=== PATIENT | female | born 1955 | race Two or more races ===

== ENCOUNTER 2025-08-04 15:29 | Outpatient (AMB) | payer OTHER, SELFPAY ==
--- NOTE | 2025-08-04 15:30 | A.OFFPC_ITS ---
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 Research Specialist Required: No Research Specialist Name: Doctor speaks afghan Accompanied by: Son Allergies No Known Allergies Allergy (Verified 08/04/25 15:39) Medication List - Last Reconciled 08/04/25 by Bereket Dent MD acetaminophen ER 650 mg PO Q12H PRN albuterol sulfate 90 mcg/actuation 2 puffs inhalation Q4H PRN budesonide-formoterol 80-4.5 mcg/actuation 2 puffs inhalation BID oxwtrfqnku-zsiilpchsnhqx-nhze 50-325-40 mg 1 tab PO DAILY PRN hydroxychloroquine 200 mg PO DAILY losartan 25 mg PO DAILY pantoprazole 40 mg PO QAM prednisone 2.5 mg PO BID theophylline ER 300 mg PO QAM Tobacco use date assessed: 08/04/25 Fall risk assessment: No Falls in past year Last assessed Fall Risk: 08/04/25 Dental Screening Dental Screen Date: 08/04/25 Did you have a dental visit in the last 12 months?: No Did you have a dental problem in the last 6 months where you did not have access to dental care?: No Was dental information given to patient?: No HPI HPI Comments History of Present Illness Details History of Present Illness The patient is a 69 year old female presenting to establish care and manage medications. Asthma: The patient reports a history of asthma, for which she frequently uses an albuterol rescue inhaler due to shortness of breath. She has a budesonide/formoterol maintenance inhaler at home but does not use it, stating she is more accustomed to the rescue inhaler. Her triggers include smoke, cold, pets, carpet, and anxiety. She has previously been prescribed Singulair (montelukast) in [place]. She also reports a history of allergies that can trigger her asthma. Arthritis: The patient has a history of arthritis, affecting her knees, spine, and fingers. She was diagnosed with rheumatoid arthritis by a doctor in [place] and was prescribed Plaquenil (hydroxychloroquine) 200 mg, prednisone 2.5 mg, and Tylenol. She also has a history of osteoarthritis, with disc problems and bone spurs in her spine. Osteopenia: The patient reports a diagnosis of osteopenia, weak bones in the hip, which was identified via a bone scan done in [place]. She cannot recall when the last scan was performed but states it was a long time ago. Migraine: The patient reports suffering from migraines, for which she takes a combination medication of butalbital, acetaminophen, and caffeine, which she reports is effective. Gastroesophageal Reflux Disease (GERD): The patient has a history of acid reflux, for which she takes pantoprazole (Protonix) 40 mg. Chronic Insomnia: She reports chronic insomnia for over 25 years. She states she barely sleeps, sometimes going four or five days with only 1.5 to 2 hours of sleep per day and refuses to take sleeping medication. Abdominal Hernia: The patient reports having three abdominal hernias. Surgical History: - Intestinal surgery - Hip surgery - Eye surgery for strabismus at age 22 - Cataract surgery Medications: - Albuterol inhaler, as needed for short ness of breath - Budesonide/formoterol inhaler (unused) - Butalbital/acetaminophen/caffeine for migraines - Hydroxychloroquine (Plaquenil) 200 mg for arthritis - Prednisone 2.5 mg for arthritis - Tylenol for arthritis pain - Losartan 25 mg - Pantoprazole (Protonix) 40 mg for refl ux - Prednisone 10 mg, as needed at home (d iscontinued during visit) - Theophylline, as needed Social History: - Medical History: The patient has not s een a doctor in one year. - Functional Status: The patient uses a 4-point cane for ambulation. - Activity Level: The patient reports ge tting tired easily, experiencing shortness of breath just walking from her bedroom to the kitchen. Diagnostic Results: - Mammogram: Normal, performed one month ago. - Pap smear: Last performed at age 66, r esults were normal. - Bone scan: History of a bone scan in [facility] which showed osteopenia, date of scan is unknown but was a long time ago. - Colonoscopy: History of a prior colono scopy, but details regarding findings and recommended follow-up interval are unknown. Past Medical History - Asthma - Rheumatoid arthritis - Osteoarthritis of the knees and spine, with disc problems and bone spurs - Osteopenia - Migraines - Gastroesophageal reflux disease - Chronic insomnia for over 25 years - Three abdominal hernias - History of strabismus - History of cataracts - Hospitalization for an asthma attack - Last menstrual period at age 51 Health Maintenance - Order a Cologuard test for colon cance r screening. - Order labs including a complete blood count and metabolic panel to check kidney and liver function. - Order an EKG to be performed in the of fice. - Plan to order a DEXA scan to re-evalua te for osteopenia. - Will refer to a environmental sampler for foot ca re. 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 [facility] Medical History (Updated 08/07/25 @ 22:38 by Bereket Dent MD) GERD (gastroesophageal reflux disease) Osteoarthritis Osteopenia Sleep disturbance Insomnia Moderate persistent asthma Overlapping toe Bunion Hernia Migraine Rheumatoid arthritis Arthritis Asthma Surgical History (Updated 08/04/25 @ 15:52 by Cheng Hamm CMA) H/O eye surgery History of cholecystectomy History of intestinal surgery History of hip surgery Family History (Updated 08/04/25 @ 15:53 by Cheng Hamm CMA) Sister Substance use disorder Brother Substance use disorder Mother Substance use disorder Social History (Updated 08/04/25 @ 15:54 by Cheng Hamm CMA) Housing: Apartment Alcohol intake: never Patient Tobacco Use Status: Never used Tobacco e-Cigarette/Vaping Use: Never Used Cognitive needs: No Hearing needs: No Vision needs: Yes Questionnaire PHQ-9 Over the last 2 weeks, how often have you been bothered by any of the following problems? 1. Little interest or pleasure in doing things: not at all 2. Feeling down, depressed, or hopeless: not at all 3. Trouble falling or staying asleep, or sleeping too much: nearly every day 4. Feeling tired or having little energy: nearly every day 5. Poor appetite or overeating: nearly every day 6. Feeling bad about yourself - or that you are a failure or have let yourself or your family down: not at all 7. Trouble concentrating on things, such as reading the newspaper or watching television: not at all [id number] - PHQ-9 Billing: Yes Source: Developed by Drs. Tae Odell, Fito Zambrano and colleagues, with an educational elian from [employer]. Thrive Questionnaire Date Thrive assessed: 08/04/25 I am a: Patient What is your living situation today?: I have a place to live, but I am worried about losing it in the future Within the past 12 months, did the food you bought not last and you didn't have the money to get more?: Never true Within the past 12 months, did you worry whether your food would run out before you got money to buy more?: Sometimes True Do you have trouble paying for medicines?: No Do you have trouble getting transportation to medical appointments?: No Do you have trouble paying your heating and electricity bill?: No Do you have trouble taking care of your child, family member or friend?: I choose not to answer this question Do you have trouble with day-to-day activities such as bathing, preparing meals, shopping, managing finances, etc.?: Yes Are you currently unemployed and looking for a job?: No Are you interested in more education?: No Please select the resources that you would like help with: Housing/Residential Currently or been in a relationship where the following occur: No concerns reported THRIVE Score: 2 AUDIT C Alcohol Use Questionnaire (AUDIT-C) 1. How often do you have a drink containing alcohol?: Never Total Score: 0 PATY-7 AMB Questionnaire PATY-7 Date PATY - 7 assessed: 08/04/25 Feeling nervous, anxious, or on edge: 1 = Several days Not being able to stop or control worryin = Several days Worrying too much about different things: 1 = Several days Trouble relaxin = Nearly every day Being so restless that it is hard to sit still: 0 = Not at all Becoming easily annoyed or irritable: 0 = Not at all Feeling afraid as if something awful might happen: 1 = Several days Total PATY-7 score (0-4 normal; 5-9 mild; 10-14 moderate; 15-21 severe): 7 Source: Developed by Drs. Tae Odell, Fito Zambrano and colleagues, with an educational elian from [employer]. PATY-7 Assessment Billing PATY-7 Assessment Tool: PATY-7 Assessment 74479 Review of Systems Narrative Review of Systems - Respiratory: Reports dyspnea and feeling of phlegm in the throat. Denies other respiratory symptoms. - Musculoskeletal: Reports arthritis pain and pain in her fingers. - Neurological: Reports migraines. Denies other neurological symptoms. - Gastrointestinal: Reports acid reflux and three abdominal hernias. Denies other GI symptoms. - HEENT: Reports she cannot see out of her right eye and has failing vision in the left eye. Denies other HEENT symptoms. - Constitutional: Reports fatigue. Denies fever or chills. - Sleep: Reports chronic insomnia for over 25 years, sleeping only 1.5-2 hours on some days. - Allergic/Immunologic: Reports a history of allergies. - Genitourinary: Reports last menstrual period at age 51. 10-point ROS reviewed and negative except as noted in HPI Physical exam (Primary Care) Vital Signs: Last Vital Signs Temp 97.5 F 08/04/25 15:54 Pulse 94 08/04/25 15:54 Resp 16 08/04/25 15:54 BP 145/73 H 08/04/25 15:54 Pulse Ox 98 08/04/25 15:54 Oxygen Delivery Method Room Air 08/04/25 15:54 BMI result Body Mass Index 30.7 Tobacco/Smoking Status: Tobacco use Status Tobacco use date assessed 08/04/25 08/04/25 15:57 Patient Tobacco Use Status Never used Tobacco 08/04/25 15:57 e-Cigarette/Vaping Use Never Used 08/04/25 15:57 Thrive Assessment: Date of Thrive Assessment Date Thrive assessed 08/04/25 08/04/25 15:33 Currently or been in a relationship where the following occur: No concerns reported Narrative Physical Exam General: Well-appearing, in no acute distress. Vital signs: Within normal limits. HEENT: Normocephalic, atraumatic. PERRLA, EOMI. Conjunctiva clear, sclera anicteric. Oropharynx clear, mucous membranes moist. TMs intact bilaterally. Neck: Supple, no lymphadenopathy, no thyromegaly, no JVD or carotid bruits. Cardiovascular: RRR, normal S1/S2, no murmurs, rubs, or gallops. Peripheral pulses 2+ and symmetric. No edema. Respiratory: Lungs clear to auscultation bilaterally, no wheezes, rales, or rhonchi. Normal effort. Abdomen: Soft, non-tender, non-distended. Normoactive bowel sounds. No hepatosplenomegaly, no masses. History of three abdominal hernias. MSK: Full range of motion, no joint swelling or deformity. Normal gait with use of cane Skin: Warm, dry, intact. No rashes, lesions, or pallor. Neuro: Alert and oriented x3. Cranial nerves II-XII intact. Strength 5/5 throughout. Sensation intact. Reflexes 2+ symmetric. Normal coordination and gait. Psych: Appropriate mood and affect. Normal judgment and insight. Reports chronic insomnia for over 25 years. Coding Level of Care Code New Pt Level 4 (69723) Add On Problem Visit Only Diagnoses Moderate persistent asthma J45.40 Overlapping toe M20.5X9 Bunion M21.619 Rheumatoid arthritis M06.9 Insomnia G47.00 Sleep disturbance G47.9 Osteopenia M85.80 Osteoarthritis M19.90 GERD (gastroesophageal reflux disease) K21.9 Hypertension I10 Additional Codes PATY-7 Assessment Billing - PATY-7 Assessment Tool: PATY-7 Assessment 91573 ([id number]) PHQ-9 - 86414 - PHQ-9 Billing: Yes ([id number]) Assessment & Plan Assessment & Plan (1) Moderate persistent asthma: Code(s): J45.40 - Moderate persistent asthma, uncomplicated Category: Medical (2) Overlapping toe: Code(s): M20.5X9 - Other deformities of toe(s) (acquired), unspecified foot Category: Medical (3) Bunion: Code(s): M21.619 - Bunion of unspecified foot Category: Medical (4) Rheumatoid arthritis: Code(s): M06.9 - Rheumatoid arthritis, unspecified Category: Medical (5) Insomnia: Code(s): G47.00 - Insomnia, unspecified Category: Medical (6) Sleep disturbance: Code(s): G47.9 - Sleep disorder, unspecified Category: Medical (7) Osteopenia: Code(s): M85.80 - Other specified disorders of bone density and structure, unspecified site Category: Medical (8) Osteoarthritis: Code(s): M19.90 - Unspecified osteoarthritis, unspecified site Category: Medical (9) GERD (gastroesophageal reflux disease): Code(s): K21.9 - Gastro-esophageal reflux disease without esophagitis Category: Medical (10) Hypertension: Code(s): I10 - Essential (primary) hypertension Plan Consent Patient was informed and verbally consented to the use of an ambient scribe for clinic note documentation during this visit. Plan 1. Asthma - The patient's frequent use of her albuterol rescue inhaler indicates poor asthma control. - Will instruct the patient to start using her maintenance inhaler, budesonide/formoterol, two puffs in the morning and two puffs at night, regardless of symptoms. - Will prescribe montelukast (Singulair) to be taken at night for asthma and allergy control. - Will continue the prescription for a rescue albuterol inhaler for emergency use only. - Will prescribe a nebulizer machine with albuterol and ipratropium for home therapy. - continue theophylline. - Follow-up in two weeks to assess control. 2. Allergic Rhinitis - Allergies are a likely trigger for her asthma. - Will prescribe cetirizine for allergies, to be taken as needed. - Flonase was also discussed as a potential treatment. 3. Arthritis - Continue current regimen of hydroxychloroquine (Plaquenil) and prednisone 2.5 mg for arthritis. - Discontinue the as-needed 10 mg prednisone kept at home due to potential side effects. - Will obtain records from her previous providers, including the [employer] passenger car who prescribed Plaquenil. 4. Chronic Insomnia - Patient has a long-standing history of chronic insomnia and refuses sleep medication. - Will order a home sleep study to evaluate her sleep. Discussion Notes I had a detailed discussion with the patient and her caregiver about her multiple chronic conditions, primarily focusing on her poorly controlled asthma. I explained that her asthma is a chronic inflammatory condition and that over- reliance on a rescue inhaler like albuterol is not an effective long-term strategy and can lead to tachyphylaxis. I emphasized the importance of using a daily maintenance inhaler (budesonide/formoterol) to control the underlying inflammation, instructing her to use it twice daily regardless of how she feels. I also introduced montelukast as an additional medication to help with both asthma and allergies. I clarified that the albuterol inhaler should be reserved for acute shortness of breath emergencies. A home nebulizer was also prescribed for more severe exacerbations. We discussed discontinuing her PRN 10 mg prednisone due to the high risk of side effects and advised her to seek immediate care if she feels unwell instead of self-medicating. We will continue her low-dose (2.5 mg) prednisone for arthritis. Regarding health maintenance, I explained the [employer] test for colon cancer screening, detailing the sample collection process. I also ordered bloodwork, an EKG, and a home sleep study to investigate her chronic insomnia. Referral will be made to podiatry. I requested that the patient provide information for her previous doctors so we can obtain medical records. I have scheduled a follow-up in two weeks to assess her asthma control. Patient Instructions - Take your new maintenance asthma inhaler (budesonide/formoterol) every day. Use two puffs in the morning and two puffs at night, even if you are feeling well. - Only use your albuterol (rescue) inhaler if you are having an emergency and feel short of breath. - You will be receiving a nebulizer machine to use at home for breathing treatments when needed. - Start taking one tablet of Montelukast (Singulair) every night for your asthma and allergies. - You can take cetirizine for allergies as needed. - Continue taking your hydroxychloroquine, losartan, pantoprazole, and the low- dose prednisone (2.5 mg) as you have been. - Do not take the 10 mg prednisone you have at home. If you feel very sick, you need to come to the clinic or go to the emergency room. - Please go for blood tests and an EKG (heart tracing) as ordered. - You will receive a kit in the mail called Eve. Follow the instructions to collect a stool sample and mail it back to the lab. - We will set up a home sleep study to understand why you have trouble sleeping. The company will call you to arrange it. - We will be referring you to a foot doctor (environmental sampler). - Please provide my chief information security officer with the contact information for all your previous doctors. - Return to the clinic in two weeks for a follow-up visit. Medical Decision Making The patient is a 69-year-old female with multiple complex chronic medical issues who presents to [facility] care after a year without medical oversight. The most pressing issue is her poorly controlled asthma, evidenced by her frequent use of an albuterol rescue inhaler and significant dyspnea on minimal exertion. My primary goal is to stabilize her respiratory status by transitioning her from a rescue-dominant approach to appropriate maintenance therapy. The decision to prescribe a budesonide/formoterol maintenance inhaler is based on standard asthma guidelines to control underlying airway inflammation, which is not addressed by albuterol alone. Adding montelukast and an as-needed antihistamine (cetirizine) targets the allergic component that likely contr ibutes to her asthma exacerbations. Prescribing a home nebulizer provides a higher level of care for acute episodes, reducing the risk of emergency department visits. I discontinued the as-needed 10 mg prednisone to mitigate the significant risks of long-term steroid use, emphasizing that acute exacerbations require direct clinical evaluation. Her rheumatological care is being continued with hydroxychloroquine and low-dose prednisone, but obtaining records is critical to confirm the diagnosis and management plan. The patient's severe, long-standing insomnia warrants a sleep study to rule out an underlying sleep disorder like sleep apnea, especially given her respiratory comorbidities. Diagnostic workup with an EKG and comprehensive labs will establish a baseline and screen for any end-organ damage from her chronic conditions. A Cologuard test is a practical approach for colon cancer screening given the unclear history of her prior colonoscopy. Referral to podiatry provided. A close follow-up in two weeks is essential to assess her response to the new asthma regimen. Total Time Statement 30 min Total time spent caring for the patient today includes pre-visit chart review, documentation, review of laboratory and diagnostic imaging results, medication reconciliation, medically necessary evaluation, counseling on diagnoses, care coordination, ordering appropriate tests and medications, review of tests performed by other providers, reporting test results to the patient, and communication with other healthcare providers. Orders: Orders Vitamin D 25-OH (D2 and D3) 08/04/25 Z13.9 - Encounter for screening, unspecified Complete Blood Count Auto Diff 08/04/25 Z13. - Encounter for screening, unspecified Hepatitis B Surface Antigen 08/04/25 Z13. - Encounter for screening, unspecified Comprehensive Met. Panel 08/04/25 Z13.9 - Encounter for screening, unspecified TSH reflex Free T4 08/04/25 Z13.9 - Encounter for screening, unspecified UA CC w/rflx Micro + Cult 08/04/25 Z13.9 - Encounter for screening, unspecified Lipid Panel 08/04/25 Z13.9 - Encounter for screening, unspecified RT home sleep study Today G47.00 - Insomnia, unspecified, G47.9 - Sleep disorder, unspecified Syphilis Screen 08/04/25 Z13.9 - Encounter for screening, unspecified Hepatitis C Antibody 08/04/25 Z13.9 - Encounter for screening, unspecified HIV Ab/Ag 08/04/25 Z13.9 - Encounter for screening, unspecified Vitamin B12 and Folate 08/04/25 Z13.9 - Encounter for screening, unspecified Hemoglobin A1c 08/04/25 Z13.9 - Encounter for screening, unspecified Magnesium 08/04/25 Z13.9 - Encounter for screening, unspecified Hepatitis B Surface Antibody 08/04/25 Z13.9 - Encounter for screening, unspecified ECG 12 lead EKG Today I10 - Essential (primary) hypertension Referrals Cologuard Test Z12.11 - Encounter for screening for malignant neoplasm of colon, Z12.12 - Encounter for screening for malignant neoplasm of rectum Podiatry Referral M20.5X9 - Other deformities of toe(s) (acquired), unspecified foot, M21.619 - Bunion of unspecified foot Medications: New budesonide-formoterol 80-4.5 mcg/actuation 2 puffs inhalation BID 10.2 grams 0RF albuterol sulfate 90 mcg/actuation 2 puffs inhalation Q4H PRN 8.5 grams 0RF wheezing/dyspnea theophylline ER 300 mg PO QAM 30 tabs 0RF montelukast 10 mg PO BEDTIME 90 tabs 0RF cetirizine (All Day Allergy (cetirizine)) 10 mg PO DAILY PRN 90 tabs 0RF allergy symptoms [nebulizer] As directed 1 ea 0RF J45.40 - Moderate persistent asthma, uncomplicated
[2025-08-04 15:54] VITALS: BP 145/73; PULSE 94; RESP 16; TEMP 36.4; O2SAT 98; BMI 30.7
--- OUTSIDE RECORDS SUMMARY | 2025-08-04 22:14 | XMS_ITS | Clinical Summary ---
Author Organization [facility] Address [address] [place] [address] Phone Care Team Providers Care Tier In Name Role Phone Unavailable Primary Care Provider Unavailabl e Allergies No known active allergies Medications albuterol HFA (Ventolin HFA) 90 mcg/actuation inhalerIndicati ons:Uncomplicat ed asthma, unspecified asthma severity, unspecified whether persistent Inhale 2 puffs by mouth every 6 (six) hours if needed for wheezing or shortness of breath. 8 g 5 5 Active ipratropium (ATROVENT) 0.02 % nebulizer solutionIndicat ions:Uncomplica anthony asthma, unspecified asthma severity, unspecified whether persistent Take 2.5 mL (0.5 mg total) by nebulization 4 (four) times a day if needed (asthma). 300 mL 5 5 10/28/19 26 Active acetaminophen (TYLENOL 8 HOUR) 650 mg 8 hr tabletIndicatio ns:Rheumatoid arthritis involving multiple sites, unspecified whether rheumatoid factor present ([facility] V24, [facility] V28) Take 1 tablet (650 mg total) by mouth 2 (two) times a day if needed for moderate pain. 56 tablet 2 5 Active predniSONE (DELTASONE) 10 mg tabletIndicatio ns:Rheumatoid arthritis involving multiple sites, unspecified whether rheumatoid factor present ([facility] V24, [facility] V28) Take 1 tablet (10 mg total) by mouth 1 (one) time each day for 7 days. 7 tablet 2 5 Active losartan (Cozaar) 25 mg tabletIndicatio ns:Type 2 diabetes mellitus with diabetic neuropathy, without long-term current use of insulin ([facility] V24, [facility] V28) Take 1 tablet (25 mg total) by mouth 1 (one) time each day. 30 each 5 10/31/19 26 Active theophylline (Simeon-24) 300 mg 24 hr capsuleIndicati ons:Uncomplicat ed asthma, unspecified asthma severity, unspecified whether persistent Take 1 capsule (300 mg total) by mouth 1 (one) time each day. Do not crush or chew. 30 each 5 10/31/19 26 Active pantoprazole (PROTONIX) 40 mg EC tabletIndicatio ns:gastroesopha geal reflux disease Take 1 tablet (40 mg total) by mouth 1 (one) time each day before breakfast. Do not crush, chew, or split. 28 each 5 11/14/19 26 Active predniSONE (DELTASONE) 2.5 mg tabletIndicatio ns:rheumatoid arthritis Take 1 tablet (2.5 mg total) by mouth 1 (one) time each day. 28 each 5 11/14/19 26 Active hydroxychloroqu ine (PlaqueniL) 200 mg tabletIndicatio ns:Rheumatoid arthritis involving multiple sites, unspecified whether rheumatoid factor present ([facility] V24, [facility] V28) Take 1 tablet (200 mg total) by mouth 1 (one) time each day. 28 tablet 5 5 Active Active Problems Problem Noted Date Diagnosed Date Polyneuropathy due to type 2 diabetes mellitus 0 11/04/2024 Assessment & Plan (11/04/2024 12:10 PM EDT): Late entry for DOS 10/30/24, chronic condition. Intermittent discomfort. Will refer to podiatry for diabetic shoes. Bilateral bunions 11/04/2024 Overview (11/04/2024): Chronic condition. Refer to podiatry for diabetic shoes. Assessment & Plan (11/04/2024 12:11 PM EDT): Late entry for DOS 10/30/24, Chronic condition. Refer to podiatry for diabetic shoes. Posterior vitreous detachment of both eyes 11/04 Assessment & Plan (11/04/2024 12:15 PM EDT): Late entry for date of service 11/13/2024. Chronic condition; reports recently having eye exam. Will need to obtain records. Regular astigmatism 11/04/2024 Assessment & Plan (11/04/2024 12:13 PM EDT): Chronic condition; had recent eye exam. Recommend yearly diabetic eye examination. Floaters 11/04/2024 Overview (11/04/2024): Late entry for DOS 10/30/24, Chronic condition; did not complain of lower extremity visit. Had a recent eye exam. Will need to obtain records. Ventral hernia Assessment & Plan (10/30/2024 4:34 PM EST): Chronic condition; stable. Reducible, non tender. Continue to monitor. Rheumatoid arthritis Assessment & Plan (10/30/2024 4:34 PM EST): Chronic condition; stable. Continue current medications. Refer to [facility] for co-management. Osteopenia Assessment & Plan (10/30/2024 4:31 PM EST): Chronic condition. Previously on vitamin D3 once a week. Will check Vitamin D level. Reports having DEXA scan in [place] < 1 year ago. Will attempt to obtain records. Osteoarthritis of multiple joints Assessment & Plan (10/30/2024 4:32 PM EST): Chronic condition; stable. Continue APAP as needed for pain. No major concerns as this time. Continue to monitor. Hypertension Assessment & Plan (10/30/2024 4:27 PM EST): Chronic condition; not well controlled. PAR has not been taking Losartan as prescribed. Reports taking medication only when she feels dizzy on average once to twice a week. Educated on the importance of taking medication daily. Risk of uncontrolled hypertension reviewed with PAR. Will have PAR return for a follow up. GERD (gastroesophageal reflux disease) Assessment & Plan (10/30/2024 4:28 PM EST): Chronic condition; has been taking PPI only as needed. Advised need to take medication daily. Will refill medication. Educated PAR on avoiding trigger foods. Diabetes mellitus Assessment & Plan (10/30/2024 4:33 PM EST): Chronic condition; reports no longer on medication. History of 3 months of using insulin. Will obtain Hgba1c. Asthma, not well controlled Assessment & Plan (10/30/2024 4:22 PM EST): Chronic condition. Will refill medications for PAR. Refer to pulmonology for a PFT treatment co-management. PAR on Theophyline for years; would most likely benefit from discontinuation of medication. Allergic rhinitis due to allergen Assessment & Plan (10/30/2024 4:24 PM EST): Chronic condition; stable. PAR uses zyrtec as needed. Continue to monitor. Migraine headache Assessment & Plan (10/30/2024 4:15 PM EST): Chronic condition. Experiences headaches 1-2 times per week. Currently controlled on Fioricet. Will plan to discuss other treatment options with PAR next visit. Surgical History Surgery Date Site/Laterality Comments SECTION, LOW TRANSVERSE COLON SURGERY GALLBLADDER TUBAL LIGATION CHOLECYSTECTOMY CATARACT EXTRACTION Left HIP FRACTURE SURGERY Left Medical History Medical History Date Comments Hypertension Diabetes mellitus ([facility] V24, [facility] V28) Asthma GERD (gastroesophageal reflux disease) Osteopenia Rheumatoid arthritis ([facility] V24, [facility] V28) Osteoarthritis of multiple joints Ventral hernia Allergic rhinitis due to allergen Migraine headache Family History Medical History Relation Name Comments No Known Problems Father Asthma Mother Colon cancer Sister 1 Uterine cancer Sister 2 Relation Name Status Comments Father Mother Sister 1 Alive Sister 2 Social History Tobacco Use Types Packs/Day Years Used Date Smoking Tobacco: Never Smokeless Tobacco: Never Tobacco Cessation:Counseling Given: Not Answered Alcohol Use Standard Drinks/Week Comments Never 0 (1 standard drink = 0.6 oz pur e alcohol) Comments Unknown Sex and Gender Information Value Date Recorded Sex Assigned at Female 10/28/2024 9:58 AM EST Legal Sex Female 4:46 PM EST Gender Identity Female 10/28/2024 9:58 AM EST Sexual Orientation Straight 10/28/2024 9: 58 AM EST Obstetrics History Para Term AB IAB SAB Ectopic Multiple Livin g Live Births 3 3 0 0 0 0 3 0 Date Outcome GA Total Labor Labor/2nd/3rd Weight Sex Type Anes PTL Roya A1 A5 Name Clin Para Para Para Last Filed Vital Signs Vital Sign Reading Time Taken Comments Blood Pressure 148/74 10/30/2024 10:54 AM EST Pulse 90 10/30/2024 10:54 AM EST Temperature 36.4 C (97.5 F) 10/30/2024 10:54 AM EST Respiratory Rate - - Oxygen Saturation 96% 10/30/2024 10:54 AM EST Inhaled Oxygen Concentration - - Weight 68.2 kg (150 lb 6.4 oz) 10/30/2024 10:54 AM EST Height 152.4 cm (5') 10/30/2024 10:54 AM EST Body Mass Index 29.37 10/30/2024 10:54 AM EST Plan of Treatment Health Maintenance Due Date Last Done Comments Breast Cancer Screening 1955 Colorectal Cancer Screening: Colonoscopy 1955 Diabetes: Annual Retina Eye Exam 1966 DTaP,Tdap,and Td Vaccines (1 - Tdap) 1975 Pneumococcal Vaccine: 50+ Ye ars (1 of 2 - PCV) 1975 RSV Immunization Adult Patie nts (1 - Risk 50-74 years 1-dose series) 2006 Zoster Vaccines (1 of 2) 2006 Depression Screening 08/27/2024 Falls Risk Assessment 10/24/2024 Hepatitis C Screening 10/24/2024 Medicare Annual Wellness Visit 10/24/2024 Osteoporosis Screening (Bone Density Screening) 10/24/2024 Social Influencers of Health Screening 10/24/2024 Diabetes: Annual Urine Albumin-Creatinine Ratio (uACR) 10/28/2024 COVID-19 Vaccine (1 - 2024-2 6 season) 2025 Influenza Vaccine (#1) 2025 Diabetes: Blood Sugar Contro l Test (HGBA1C) 05/02/2025 10/30/2024 Diabetes: Annual Foot Exam 10/30/2025 10/30/2024 Diabetes: Annual GFR (Glomer ular Filtration Rate) 10/30/2025 10/30/2024 Hypertension/CHF/CAD Annual BMP Blood Test 10/30/2025 10/30/2024 Cholesterol Screening (Lipid Panel) 10/30/2029 10/30/2024 HIB Vaccines Aged Out No longer eligi ble based on patient's age to complete this topic HPV Vaccines Aged Out No longer eligi ble based on patient's age to complete this topic Hepatitis A Vaccines Aged Out No long er eligible based on patient's age to complete this topic Hepatitis B Vaccines Aged Out No long er eligible based on patient's age to complete this topic IPV Vaccines Aged Out No longer eligi ble based on patient's age to complete this topic MMR Vaccines Aged Out No longer eligi ble based on patient's age to complete this topic Meningococcal ACWY Vaccine Aged Out N o longer eligible based on patient's age to complete this topic Meningococcal B Vaccine Aged Out No l onger eligible based on patient's age to complete this topic RSV Immunization Patients Un dionisio 20 months Aged Out No longer eligible b ased on patient's age to complete this topic Varicella Vaccines Aged Out No longer eligible based on patient's age to complete this topic Procedures Procedure Name Priority Date/Time Associated Diagnosis Comments COMPREHENSIVE METABOLIC PANEL Routine 10/30/2024 1:09 PM EST Examination HEMOGLOBIN A1C Routine 10/30/2024 1:09 PM EST Examination LIPID PANEL WITH REFLEX TO DIRECT LDL Routine 10/30/2024 1:09 PM EST Examination from Last 3 Months or Most Recently Relevant to Health Maintenance Results * Lipid panel with reflex to direct LDL (10/30/2024 1:09 PM EST) Cholesterol 179 0 - 200 mg/dL LAB CHEMISTRY METHOD 10/30/2024 7:34 PM EST [facility] Triglycerides 99 0 - 150 mg/dL LAB CHEMISTRY METHOD 10/30/2024 7:34 PM EST [facility] HDL 72 >=40 mg/dL LAB CHEMISTRY METHOD 10/30/2024 7:34 PM EST [facility] LDL Calculated 87 0 - 100 mg/dL LAB CHEMISTRY METHOD 10/30/2024 7:34 PM [facility] VLDL Cholesterol Dominic 19.8 mg/dL LAB CHEMISTRY METHOD 10/30/2024 7:34 PM [facility] Non HDL Chol. (LDL+VLDL) 107 <145 mg/dL LAB CHEMISTRY METHOD 10/30/2024 7:34 PM [facility] Chol/HDL Ratio 2.5 0.0 - 4.4 LAB CHEMISTRY METHOD 10/30/2024 7:34 PM [facility] Blood Venous blood specimen / Unknown Venipuncture / Unknown 10/30/2024 1:09 PM EST 10/30/2024 1:09 PM EST Jenny Hamm NP LAB BLOOD ORDERABLES Final Re sult Performing Organization Address City/[facility]/ZIP Co de Phone Number [facility] [address] [place] [address], [place] [phone] * Hemoglobin A1c (10/30/2024 1:09 PM EST) Hemoglobin A1C 5.2 <6.5 % LAB CHEMISTRY METHOD 10/31/2024 10:53 AM [facility] Mean Bld Glu Estim. 103 mg/dL LAB CHEMISTRY METHOD 10/31/2024 10:53 AM [facility] Blood Venous blood specimen / Unknown Venipuncture / Unknown 10/30/2024 1:09 PM EST 10/30/2024 1:09 PM EST Jenny Hamm NP LAB BLOOD ORDERABLES Final Re sult Performing Organization Address City/[facility]/ZIP Co de Phone Number [facility] [address] [place] [address], [place] [phone] * (ABNORMAL) Comprehensive metabolic panel (10/30/2024 1:09 PM EST) Sodium 132(L) 133 - 145 mmol/L LAB CHEMISTRY METHOD 10/30/2024 7:34 PM [facility] Potassium 3.8 3.5 - 5.5 mmol/L LAB CHEMISTRY METHOD 10/30/2024 7:34 PM [facility] Chloride 99 96 - 110 mmol/L LAB CHEMISTRY METHOD 10/30/2024 7:34 PM [facility] CO2 25 21 - 32 mmol/L LAB CHEMISTRY METHOD 10/30/2024 7:34 PM [facility] Anion Gap 8 3 - 11 LAB CHEMISTRY METHOD 10/30/2024 7:34 PM [facility] Glucose 86 70 - 100 mg/dL LAB CHEMISTRY METHOD 10/30/2024 7:34 PM [facility] BUN 11 5 - 25 mg/dL LAB CHEMISTRY METHOD 10/30/2024 7:34 PM [facility] Creatinine 0.80 0.50 - 1.10 mg/dL LAB CHEMISTRY METHOD 10/30/2024 7:34 PM [facility] eGFR 80 >=60 mL/min/1. 73m2 LAB CHEMISTRY METHOD 10/30/2024 7:34 PM [facility] Comment:Calculation based on the Chronic Kidney Disease Epidemiology Collaboration (CKD-EPI) equation refit without adjustment for race. BUN/Creatinine Ratio 13.8 LAB CHEMISTRY METHOD 10/30/2024 7:34 PM [facility] Calcium 9.6 8.5 - 10.5 mg/dL LAB CHEMISTRY METHOD 10/30/2024 7:34 PM [facility] AST (SGOT) 22 10 - 42 unit/L LAB CHEMISTRY METHOD 10/30/2024 7:34 PM [facility] ALT (SGPT) 23 10 - 60 unit/L LAB CHEMISTRY METHOD 10/30/2024 7:34 PM [facility] Alkaline Phosphatase 79 42 - 121 unit/L LAB CHEMISTRY METHOD 10/30/2024 7:34 PM EST [facility] Total Protein 7.5 6.0 - 8.0 g/dL LAB CHEMISTRY METHOD 10/30/2024 7:34 PM EST [facility] Albumin 3.9 3.2 - 5.0 g/dL LAB CHEMISTRY METHOD 10/30/2024 7:34 PM EST [facility] Total Bilirubin 0.3 0.0 - 1.4 mg/dL LAB CHEMISTRY METHOD 10/30/2024 7:34 PM EST [facility] Blood Venous blood specimen / Unknown Venipuncture / Unknown 10/30/2024 1:09 PM EST 10/30/2024 1:09 PM EST us Jenny Hamm NP LAB BLOOD ORDERABLES Final Re sult [facility] [address] [place] [address], from Last 3 Months or Most Recently Relevant to Health Maintenance Insurance [employer] * Guarantor: DILIP Account Type Relation to Patient Date of Phone Billing Address DILIP CHERRY [address] [place] [id number] [employer] Advance Directives Documents on File Type Date Recorded Patient Host/Hostess Head Expl anation Advance Directives and Living Will 12/18/2024 12:31 PM MOLST 10/20/2024
--- OUTSIDE RECORDS SUMMARY | 2025-08-04 22:14 | XMS_ITS | Encounter Summary ---
Author Organization [facility] Address [address] [place] [address] Encounters * CPT with Bossman Restrepo at [facility] on 2025-02-21 { reasonForRequest : Pt reporting severe headache>high blood pressure (168/100)\n\nAllergies to medication: None\nPMH: hypertension, asthma, arthritis , , patientReports : Weakness/tachycardia , denies :[ History of Heart Attack, in the setting of active chest pain , Active Chest pain, radiates to neck jaw and or arm , Diaphoretic/Sweating , Describes as crushing ,"Sudden onset of nausea/Vomiting and shortness of breath. , Shortness of Breath ,"Unable to speak in full sentences without distress , Palpitations, feeling dizzy", Chest pain, increased fatigue , CHF history, increased swelling and edema ],& quot;chiefComplaints : High Blood Pressure, Headache , pmh : Hypertension, Asthma, Osteoarthritis , allergies : No Known Drug Allergies , ot herAllergies : , painAssessment : , visitOutcome :&qu ot; , additionalComments : 69 y.o female complains of High Blood Pressure, Heada candido\nPatient is complaining of a headache that started this morning. She took her losartan this morning. She just checked her pressure prior to calling and it was 168/100 and states she feels tired. denies any lightheadedness, visual issues, denies any chest pain or pressure, nausea or vomiting. reviewed red flags. \n\nI provided information on the mobile health provider response time and advisedthe patient and/or caregiver to monitor reported signs and symptoms. I discussed the warning signs of when to seek emergency care. } [place] [facility] responds to the listed address for a 69yof w/ a c/c of high blood pressure and finnegan. Upon arrival on scene, pt's son, with whom she lives, opens the door to the small apartment. Pt is found seatedin a chair by the window in the living area of the apartment. She is resting her head in her hand and she lifts it and turns to make eye contact and smiles at [facility]. She is generally well-appearing. No facial droop or one-sided weakness are observed, no stridor or sonorous respirations are present and she is not bleeding anywhere. Pt is endorsing high bp readings all day today. She took her bp thismorning because she awoke w/ a bad finnegan and thought it may be from her bp. She saw the reading was higher than normal and began to take it several times throughout the day. She endorses 6 or more timesof taking her bp. She also took 650mg Tylenol x2 tablets this afternoon w/ no relief of her finnegan. Shehas a hx of migraines and normally has fiorocet, but she and her son just moved to the area from [place] a few months ago and have yet to be established w/ a PCP. They are on a waiting list. She also has asthma. She is denying cp, sob, n/v/d, fevers/chills, ams, confusion, difficulty speaking, or feeling like she can't move or have control of one-side of her body. She denies this finnegan being a migraine. Pt consents to evaluation and treatment today. [facility] obtains pt consent. Vital signs are gathered and pt is assessed. Physical exam is unremarkable and lung sounds are clear to auscultation bilaterally. [facility] contacts [facility] and discusses the above. Casks about pt's medical hx and prescriptions and wants to ensure she has enough of her medications to last until she does get in to see a PCP. She asks for a refill on her albuterol inhaler as well as her theophylline. She is currently under the care of a vendor quality supervisor for her RA. [facility] orders ibuprofen 400mg PO for pt for the FINNEGAN. [facility] administers 200mg x2 tablets PO for pt and instructs her on howto alternate the ibuprofen w/ Tylenol for the FINNEGAN. [facility] informs pt and sone of warning signs of when to seek emergency care. Pt and son thank [facility] for coming. [facility] is clear. Report completed by DEVYN Sandoval [id number]. IV_(FLUIDS_AND/OR_MEDICATION), MEDICATION_IM, ORAL_MEDICATION, EKG, POC_FLU_STREP, COVID_TEST, ORTHOSTATIC_VITAL_SIGNS Written by Bossman Restrepo on 2025-02-21
--- OUTSIDE RECORDS SUMMARY | 2025-08-04 22:15 | XMS_ITS | Continuity of Care Document ---
Author Name Bossman Restrepo Address [address] [place] [id number] Organization Unknown Address [address] [place] [address] Medications No known medications Problems No known problems
== END 2025-08-04 16:54 | disposition home or self-care (01) ==
LOC: HO.HMCFMS 15:30
PROVIDERS: Visit Provider Student in an Organized Health Care Education/Training Program
DX: J45.40 Moderate persistent asthma, uncomplicated (principal); M20.5X9 Other deformities of toe(s) (acquired), unspecified foot; M21.619 Bunion of unspecified foot; M06.9 Rheumatoid arthritis, unspecified; G47.00 Insomnia, unspecified; G47.9 Sleep disorder, unspecified; M85.80 Other specified disorders of bone density and structure, unspecified site; M19.90 Unspecified osteoarthritis, unspecified site; K21.9 Gastro-esophageal reflux disease without esophagitis; I10 Essential (primary) hypertension

== ENCOUNTER → 2025-08-04 15:29 | Outpatient (BNVA) | payer OTHER, SELFPAY | PROVIDERS: Visit Provider Student in an Organized Health Care Education/Training Program | DX: J45.40 Moderate persistent asthma, uncomplicated (principal); M20.5X9 Other deformities of toe(s) (acquired), unspecified foot; M21.619 Bunion of unspecified foot; M06.09 Rheumatoid arthritis without rheumatoid factor, multiple sites; G47.00 Insomnia, unspecified; G47.9 Sleep disorder, unspecified; M85.80 Other specified disorders of bone density and structure, unspecified site; M19.90 Unspecified osteoarthritis, unspecified site; K21.9 Gastro-esophageal reflux disease without esophagitis; I10 Essential (primary) hypertension; Z79.899 Other long term (current) drug therapy | CPT/HCPCS: 96127; 99202 ==

== ENCOUNTER 2025-08-12 15:20 | Outpatient (REF) | payer OTHER, SELFPAY ==
[2025-08-12 19:01] LABS: MANUAL DIFF FLAG NO
[2025-08-12 19:07] LABS: Appearance Urine Clear; Glucose Urine UA Negative (Negative); PH 6.0 (5.0-9.0); Specific Gravity - Urine 1.015 (1.005-1.025); UMIC TRIGGER UACC YES
[2025-08-12 19:16] LABS: UACC Culture Trigger YES
[2025-08-12 19:33] LABS: Hematocrit 36.8 % (37.0-47.0); Hemoglobin 12.3 g/dl (12.0-16.0); Imm Gran Abs Auto 0.01 X10*3/uL (0.00-0.03); Imm Gran Pct Auto 0.2 % (0.0-0.4); Lymphocytes Absolute Auto 1.8 X10*3/uL (1.2-4.9); Mean Corpuscular HGB Conc 33.4 g/dl (31.0-35.0); Mean Corpuscular Hemoglobin 29.6 pg (27.0-33.0); Mean Corpuscular Volume 88.5 fL (80.0-98.0); NRBC Abs Auto 0.000 X10*3/uL (0.0-0.012); NRBC Pct Auto 0.0 /100WBC (0.0-0.2); Platelet Count 184 X10*3/uL (160-400); Red Blood Count 4.16 X10*6/uL (4.20-5.50); White Blood Count 6.2 X10*3/uL (4.8-10.8)
[2025-08-12 19:43] LABS: Alanine Aminotransferase 18 U/L (0-31); Albumin Level 4.3 g/dL (3.5-5.0); Alkaline Phosphatase 87 U/L (39-117); Anion Gap 9 (12-20); Aspartate Amino Transferase 25 U/L (5-31); Blood Urea Nitrogen 11 mg/dL (9-16); Calcium 9.4 mg/dL (8.4-10.2); Carbon Dioxide 26 mmol/L (22-29); Chloride 108 mmol/L (96-108); Cholesterol 169 mg/dL (<200); Estimated Glomerular Filt Rate 59; HDL Cholesterol 66 mg/dL (>40); Magnesium 2.1 mg/dL (1.6-2.6); Potassium 4.0 mmol/L (3.3-5.1); Sodium 139 mmol/L (135-145); Total Protein 7.0 g/dL (6.5-8.0); Triglycerides 89 mg/dL (<150)
[2025-08-12 20:05] LABS: Folate 9.6 ng/mL (> or = 4.0); Vitamin B12 1259 pg/mL (200-900)
--- OUTSIDE RECORDS SUMMARY | 2025-08-12 20:24 | XMS_ITS | Data Portability ---
Author Organization [place] [employer] [facility] Address [address] [place] [address] Care Team Providers Care Teaching Artist Name Role Phone HIM CCA OTHER Assessment Encounter Date Assessment Date Assessment LastModified by Organization Details LastModified Time 02/20/2025 02/20/2025 service called for BP and FINNEGAN found 69 matilde with hx migraine FINNEGAN rheumatoid arthritis HTN asthma c/o FINNEGAN, not with feature of migraine also anxiety regarding BP also recently arrived from [place] and requires refills inhaler, theophylline recently taken 1300mg PO acetaminophen VS af 143/80 76 16 97%RA no focal neuro deficit CTAB #Tension FINNEGAN ibuprofen 400 mg PO x 1 continue OTC acetaminophen as directed ibuprofen 400mg q6h PRN #Asthma refil theophylline, ventolin needs connect to pulm #RA continue HQ as routine, continue f/up with Rheum notify service if worsening or no improvement otherwise return to ptimary team [email or web address] Not available 02/20/2025 21:47:27 Plan of Treatment Reminders Order Date Submit Date Provider Last Modified By Organization Details Last Modified Time Details Appointments None recorded. Lab None recorded. Referral None recorded. Procedures None recorded. Surgeries None recorded. Imaging None recorded. Medication Orders Ventolin HFA 90 mcg/actuati on aerosol inhaler 2024 025 [id number], [address], [place], [id number], 21:38:16 theophyllin e ER 300 mg tablet,exte nded release,12 hr 2024 025 [id number], [address], [place], [id number], 21:43:17 ibuprofen 400 mg tablet 2024 025 [id number], [address], [place], [id number], 5 21:38:17 ibuprofen 200 mg tablet [email or web address] [facility] #[id number], [address], [place], [id number], 5 21:38:05 Patient TargetsNo targets recorded. Patient InstructionsNo instructions recorded. Reason for Referral None Reported. Medical Equipment None Reported. Allergies No known drug allergies Medications Name Sig Start Date Stop Date Status Note LastModified by Organization Details LastModified Time butalbital- acetaminoph en-caffeine 50 mg-325 mg-40 mg tablet LIBBY FREDY TABLETA DIARIAMEN TE CUANDO SEA NECESARIO active Not Available Not Available No t Available theophyllin e ER 300 mg tablet,exte nded release,12 hr TAKE 1 TABLET BY MOUTH EVERY 12 HOURS active Not Available Not Available No t Available acetaminoph en ER 650 mg tablet,exte nded release TOME FREDY TABLETA CADA DOCE HORAS CUANDO SEA NECESARIO PARA DOLOR active Not Available Not Available No t Available prednisone 2.5 mg tablet TOME FREDY TABLETA DOS VECES AL SHAYLEE POR SEIS SEMANAS LUEGO TOME FREDY TABLETA DIARIAMEN TE CON LA CRISTOFER 02/20 completed Not Available Not Available Not Available losartan 25 mg tablet TAKE 1 TABLET BY MOUTH EVERY DAY active Not Available Not Available No t Available ibuprofen 400 mg tablet TAKE 1 TABLET BY MOUTH EVERY 4 HOURS NEEDED FOR PAIN active Not Available Not Available No t Available hydroxychlo roquine 200 mg tablet TAKE 1 TABLET BY MOUTH DAILY active Not Available Not Available No t Available albuterol sulfate HFA 90 mcg/actuati on aerosol inhaler INHALE 2 PUFFS BY MOUTH EVERY 4 HOURS active Not Available Not Available No t Available Vitals Date Recorded Heart rate Body weight Body temperature Respiratory rate Oxygen saturation Body height Systolic And Diastolic Provider Name and Address Organization Details Last Updated DateTime 5 76 /min 61378.7 6 g 97.5 [degF] 16 /min 97 % 152.4 cm 143/80 mm[Hg] Not Available [facility] - production 21:18:56 Social History None recorded. Functional Status None recorded. Mental Status None recorded. Family History Nothing Reported. Medical History No medical history recorded. Gynecological HistoryNo gynecological history recorded. Obstetrics History GPAL:G 0 P 0 0 0 0 Past Encounters Encounter ID Performer Location Encounter Start Date Encounter Closed Date Diagnosis/Indication Diagnosis SNOMED-CT Code Diagnosis ICD10 Code Diagnosis IMO Codes Diagnosis Note [id number] Polina Kaye MD [facility] [address] [place] [address] 02/20/2025 21:18:54 02/21/2025 21:17:20 Uncomplicated moderate persistent asthma 386030731 J45.40 [id number] Tension-type headache 39 9358007 G44.209 30411 Health Concerns Section Related Observation LastModified by Organization Detai ls LastModified Time None Recorded Concern Status LastModified by Organization Details LastModified Time None Recorded Advance Directives Directive None Recorded Payers Insurance Date Sequence Insurance Name Policy Number Policy Beauchamp Covered Member ID Beauchamp Member ID Guarantor Name 02/21/2025 1 [facility] - DOS ON OR AFTER 2022 - DUAL ELIGIBLE - [employer] AND ONE CARE (MEDICARE REPLACEMENT/ADV ANTAGE - HMO) Fouzia Hernandez [id number] Fouzia Hernandez Notes Date Note Type Note Provider Name and Address Organization Details Recorded Time 02/20/2025 text/html CRC Nurse Triage Notes (Rashmi Griffith - RN): Reason For Request: Pt reporting severe headache>high blood pressure (168/100)Allergies to medication: NonePMH: hypertension, asthma, arthritis, Patient Reports: Weakness/tachycardia Denies: History of Heart Attack, in the setting of active chest pain Active Chest pain, radiates to neck jaw and or arm Diaphoretic/Sweating Describes as c rushing Sudden onset of nausea/Vomiting and shortness of breath. Shortness of Breath Unable to speak in full sentences without distress Palpitations, feeling dizzy Chest pain, increased fatigue CHF history, increased swelling and edema Chief Complaints: High Blood Pressure, Headache PMH: Hypertension, Asthma, Osteoarthritis PMH Reviewed at 02/20/2025 17:48 Allergies Reviewed at 02/20/2025 - :48 Comments: 69 y.o female complains of High Blood Pressure, Headache Patient is complaining of a headache that started this morning. She took her losartan this morning. She just checked her pressure prior to calling and it was 168/100 and states she feels tired. denies any lightheadedness, visual issues, denies any chest pain or pressure, nausea or vomiting. reviewed red flags. I provided information on the mobile health provider response time and advised the patient and/or caregiver to monitor reported signs and symptoms. I discussed the warning signs of when to seek emergency care. .................... .................... .................... .................... .................... .................... .................... . Youth Corrections Officer Note From Liv Sandoval: [place] 6 responds to the listed address for a 69yof w/ a c/c of high blood pressure and finnegan. Upon arrival on scene, pt's son, with whom she lives, opens the door to the small apartment. Pt is found seated in a chair by the window in the living area of the apartment. She is resting her head in her hand and she lifts it and turns to make eye contact and smiles at [facility]. She is generally well-appearing. No facial droop or one-sided weakness are observed, no stridor or sonorous respirations are present and she is not bleeding anywhere. Pt is endorsing high bp readings all day today. She took her bp this morning because she awoke w/ a bad finnegan and thought it may be from her bp. She saw the reading was higher than normal and began to take it several times throughout the day. She endorses 6 or more times of taking her bp. She also took 650mg Tylenol x2 tablets this afternoon w/ no relief of her finnegan. She has a hx of migraines and normally has fiorocet, but she and her son just moved to the area from [place] a few months ago and have yet to be established w/ a PCP. They are on a waiting list. She also has asthma. She is denying cp, sob, n/v/d, fevers/chills, ams, confusion, difficulty speaking, or feeling like she can't move or have control of one-side of her body. She denies this finnegan being a migraine. Pt consents to evaluation and treatment today. [facility] obtains pt consent. Vital signs are gathered and pt is assessed. Physical exam is unremarkable and lung sounds are clear to auscultation bilaterally. [facility] contacts [facility] and discusses the above. [facility] asks about pt's medical hx and prescriptions and wants to ensure she has enough of her medications to last until she does get in to see a PCP. She asks for a refill on her albuterol inhaler as well as her theophylline. She is currently under the care of a geoscience laboratory technician for her RA. [facility] orders ibuprofen 400mg PO for pt for the FINNEGAN. [facility] administers 200mg x2 tablets PO for pt and instructs her on how to alternate the ibuprofen w/ Tylenol for the FINNEGAN. [facility] informs pt and sone of warning signs of when to seek emergency care. Pt and son thank [facility] for coming. [facility] is clear. Report completed by DEVYN Sandoval [id number]. [facility] Medication Orders: ibuprofen 200 mg tablet: Administered .................... .................... .................... .................... .................... .................... .................... . [facility] Consulted: Polina Kaye .................... .................... .................... .................... .................... .................... .................... . Disposition: Fulfilled Polina Kaye MD [address] [place] [address],[address], [place], [address], [employer], [employer] 02/20/2025 22:42:27 OBGyn Episode No OBEpisode recorded.
--- OUTSIDE RECORDS SUMMARY | 2025-08-12 20:24 | XMS_ITS | Clinical Summary ---
Author Organization [facility] Address [address] [place] [address] Phone Care Team Providers Care Risk And Compliance Analytics Director Name Role Phone Unavailable Primary Care Provider [...] multiple sites, unspecified whether rheumatoid factor present ([facility] V24, [facility] V28) Take 1 tablet (650 mg total) by mouth 2 (two) times a day if needed for moderate pain. 56 tablet 2 5 Active predniSONE (DELTASONE) 10 mg tabletIndicatio ns:Rheumatoid arthritis involving multiple sites, unspecified whether rheumatoid factor present ([facility] V24, [facility] V28) Take 1 tablet (10 mg total) by mouth 1 (one) time each day for 7 days. 7 tablet 2 5 Active losartan (Cozaar) 25 mg tabletIndicatio ns:Type 2 diabetes mellitus with diabetic neuropathy, without long-term current use of insulin ([facility] V24, [facility] V28) Take 1 tablet (25 mg total) [...] multiple sites, unspecified whether rheumatoid factor present ([facility] V24, [facility] V28) Take 1 tablet (200 mg total) [...] condition; stable. Continue current medications. Refer to Pier Hand for co-management. Osteopenia Assessment & Plan (10/30/2024 4:31 PM EST): Chronic condition. Previously on vitamin D3 once a week. Will check Vitamin D level. Reports having DEXA scan in [place] < 1 year ago. Will attempt to [...] Medical History Date Comments Hypertension Diabetes mellitus ([facility] V24, [facility] V28) Asthma GERD (gastroesophageal reflux disease) Osteopenia Rheumatoid arthritis ([facility] V24, [facility] V28) Osteoarthritis of multiple joints Ventral hernia [...] LAB CHEMISTRY METHOD 10/30/2024 7:34 PM EST [facility] Triglycerides 99 0 - 150 mg/dL LAB CHEMISTRY METHOD 10/30/2024 7:34 PM EST [facility] HDL 72 >=40 mg/dL LAB CHEMISTRY METHOD 10/30/2024 7:34 PM EST [facility] LDL Calculated 87 0 - 100 mg/dL LAB CHEMISTRY METHOD 10/30/2024 7:34 PM [facility] VLDL Cholesterol Dominic 19.8 mg/dL LAB CHEMISTRY METHOD 10/30/2024 7:34 PM [facility] Non HDL Chol. (LDL+VLDL) 107 <145 mg/dL LAB CHEMISTRY METHOD 10/30/2024 7:34 PM [facility] Chol/HDL Ratio 2.5 0.0 - 4.4 LAB CHEMISTRY METHOD 10/30/2024 7:34 PM [facility] Blood Venous blood specimen / Unknown Venipuncture / Unknown 10/30/2024 1:09 PM EST 10/30/2024 1:09 PM EST Jenny Hamm NP LAB BLOOD ORDERABLES Final Re sult Performing Organization Address City/[facility]/ZIP Co de Phone Number [facility] [address] [place] [address], [place] [phone] * Hemoglobin A1c (10/30/2024 1:09 PM EST) Hemoglobin A1C 5.2 <6.5 % LAB CHEMISTRY METHOD 10/31/2024 10:53 AM [facility] Mean Bld Glu Estim. 103 mg/dL LAB CHEMISTRY METHOD 10/31/2024 10:53 AM [facility] Blood Venous blood specimen / Unknown Venipuncture / Unknown 10/30/2024 1:09 PM EST 10/30/2024 1:09 PM EST Jenny Hamm NP LAB BLOOD ORDERABLES Final Re sult Performing Organization Address City/[facility]/ZIP Co de Phone Number [facility] [address] [place] [address], [place] [phone] * (ABNORMAL) Comprehensive metabolic panel (10/30/2024 1:09 PM EST) Sodium 132(L) 133 - 145 mmol/L LAB CHEMISTRY METHOD 10/30/2024 7:34 PM [facility] Potassium 3.8 3.5 - 5.5 mmol/L LAB CHEMISTRY METHOD 10/30/2024 7:34 PM [facility] Chloride 99 96 - 110 mmol/L LAB CHEMISTRY METHOD 10/30/2024 7:34 PM [facility] CO2 25 21 - 32 mmol/L LAB CHEMISTRY METHOD 10/30/2024 7:34 PM [facility] Anion Gap 8 3 - 11 LAB CHEMISTRY METHOD 10/30/2024 7:34 PM [facility] Glucose 86 70 - 100 mg/dL LAB CHEMISTRY METHOD 10/30/2024 7:34 PM [facility] BUN 11 5 - 25 mg/dL LAB CHEMISTRY METHOD 10/30/2024 7:34 PM [facility] Creatinine 0.80 0.50 - 1.10 mg/dL LAB CHEMISTRY METHOD 10/30/2024 7:34 PM [facility] eGFR 80 >=60 mL/min/1. 73m2 LAB CHEMISTRY METHOD 10/30/2024 7:34 PM [facility] Comment:Calculation based on the Chronic Kidney Disease Epidemiology Collaboration (CKD-EPI) equation refit without adjustment for race. BUN/Creatinine Ratio 13.8 LAB CHEMISTRY METHOD 10/30/2024 7:34 PM [facility] Calcium 9.6 8.5 - 10.5 mg/dL LAB CHEMISTRY METHOD 10/30/2024 7:34 PM [facility] AST (SGOT) 22 10 - 42 unit/L LAB CHEMISTRY METHOD 10/30/2024 7:34 PM [facility] ALT (SGPT) 23 10 - 60 unit/L LAB CHEMISTRY METHOD 10/30/2024 7:34 PM [facility] Alkaline Phosphatase 79 42 - 121 unit/L LAB CHEMISTRY METHOD 10/30/2024 7:34 PM EST [facility] Total Protein 7.5 6.0 - 8.0 g/dL LAB CHEMISTRY METHOD 10/30/2024 7:34 PM EST [facility] Albumin 3.9 3.2 - 5.0 g/dL LAB CHEMISTRY METHOD 10/30/2024 7:34 PM EST [facility] Total Bilirubin 0.3 0.0 - 1.4 mg/dL LAB CHEMISTRY METHOD 10/30/2024 7:34 PM EST [facility] Blood Venous blood specimen / Unknown Venipuncture / Unknown 10/30/2024 1:09 PM EST 10/30/2024 1:09 PM EST us Jenny Hamm NP LAB BLOOD ORDERABLES Final Re sult [facility] [address] [place] [address], from Last 3 Months or Most Recently Relevant to Health Maintenance Insurance [facility] * Guarantor: DILIP Account Type Relation to Patient Date of Phone Billing Address DILIP CHERRY Piy[address] [place] [id number] [facility] Advance Directives Documents on File Type Date Recorded Patient Inspector Of Dredging Expl anation Advance Directives and Living Will 12/18/2024 12:31 PM [facility] 10/20/2024
[2025-08-13 04:23] LABS: HBS Num1 0.00 mIU/mL (0-7.99); HIV Num 1 0.10 S/CO (0.00-0.99); ~HepC Num1 0.07 S/CO (0.00-0.79); ~Hepatitis B Surface Antibody NONREACTIVE (Nonreactive); ~Hepatitis C Antibody Nonreactive (Nonreactive)
[2025-08-13 04:52] LABS: Syphilis Screen Nonreactive (Nonreactive)
[2025-08-13 13:18] LABS: HBsAGNum1 0.27 S/CO (0.00-0.99); Hepatitis B Surface Antigen Negative (Negative)
== END 2025-08-12 15:21 | disposition home or self-care (01) ==
LOC: HO.HKASLDS 15:20
PROVIDERS: PCP Student in an Organized Health Care Education/Training Program; Visit Provider Student in an Organized Health Care Education/Training Program
DX: Z13.89 Encounter for screening for other disorder (principal); Z13.1 Encounter for screening for diabetes mellitus; Z13.6 Encounter for screening for cardiovascular disorders; Z13.29 Encounter for screening for other suspected endocrine disorder; Z13.21 Encounter for screening for nutritional disorder; Z11.4 Encounter for screening for human immunodeficiency virus [HIV]; Z01.84 Encounter for antibody response examination
CPT/HCPCS: 36415; 80053; 80061; 81001; 81003; 82306; 82607; 82746; 83036; 83735; 84443; 85025; 86706; 86780; 86803; 87086; 87340; 87389

== ENCOUNTER 2025-08-21 15:35 | Outpatient (AMB) | payer OTHER, SELFPAY ==
--- OUTSIDE RECORDS SUMMARY | 2025-08-21 15:37 | XMS_ITS | Clinical Summary ---
Author Organization [facility] Address [address] [place] [address] Phone Care Team Providers Care Wire Cutter Name Role Phone Unavailable Primary Care Provider [...] multiple sites, unspecified whether rheumatoid factor present ([facility] V24, [facility] V28) Take 1 tablet (650 mg total) by mouth 2 (two) times a day if needed for moderate pain. 56 tablet 2 5 Active predniSONE (DELTASONE) 10 mg tabletIndicatio ns:Rheumatoid arthritis involving multiple sites, unspecified whether rheumatoid factor present ([facility] V24, [facility] V28) Take 1 tablet (10 mg total) by mouth 1 (one) time each day for 7 days. 7 tablet 2 5 Active losartan (Cozaar) 25 mg tabletIndicatio ns:Type 2 diabetes mellitus with diabetic neuropathy, without long-term current use of insulin ([facility] V24, [facility] V28) Take 1 tablet (25 mg total) [...] multiple sites, unspecified whether rheumatoid factor present ([facility] V24, [facility] V28) Take 1 tablet (200 mg total) [...] condition; stable. Continue current medications. Refer to Community Service Worker for co-management. Osteopenia Assessment & Plan (10/30/2024 4:31 PM EST): Chronic condition. Previously on vitamin D3 once a week. Will check Vitamin D level. Reports having DEXA scan in [place] < 1 year ago. Will attempt to [...] Medical History Date Comments Hypertension Diabetes mellitus ([facility] V24, [facility] V28) Asthma GERD (gastroesophageal reflux disease) Osteopenia Rheumatoid arthritis ([facility] V24, [facility] V28) Osteoarthritis of multiple joints Ventral hernia [...] LAB CHEMISTRY METHOD 10/30/2024 7:34 PM EST [facility] Triglycerides 99 0 - 150 mg/dL LAB CHEMISTRY METHOD 10/30/2024 7:34 PM EST [facility] HDL 72 >=40 mg/dL LAB CHEMISTRY METHOD 10/30/2024 7:34 PM EST [facility] LDL Calculated 87 0 - 100 mg/dL LAB CHEMISTRY METHOD 10/30/2024 7:34 PM [facility] VLDL Cholesterol Dominic 19.8 mg/dL LAB CHEMISTRY METHOD 10/30/2024 7:34 PM [facility] Non HDL Chol. (LDL+VLDL) 107 <145 mg/dL LAB CHEMISTRY METHOD 10/30/2024 7:34 PM [facility] Chol/HDL Ratio 2.5 0.0 - 4.4 LAB CHEMISTRY METHOD 10/30/2024 7:34 PM [facility] Blood Venous blood specimen / Unknown Venipuncture / Unknown 10/30/2024 1:09 PM EST 10/30/2024 1:09 PM EST Jenny Hamm NP LAB BLOOD ORDERABLES Final Re sult Performing Organization Address City/[facility]/ZIP Co de Phone Number [facility] [address] [place] [address], [place] [phone] * Hemoglobin A1c (10/30/2024 1:09 PM EST) Hemoglobin A1C 5.2 <6.5 % LAB CHEMISTRY METHOD 10/31/2024 10:53 AM [facility] Mean Bld Glu Estim. 103 mg/dL LAB CHEMISTRY METHOD 10/31/2024 10:53 AM [facility] Blood Venous blood specimen / Unknown Venipuncture / Unknown 10/30/2024 1:09 PM EST 10/30/2024 1:09 PM EST Jenny Hamm NP LAB BLOOD ORDERABLES Final Re sult Performing Organization Address City/[facility]/ZIP Co de Phone Number [facility] [address] [place] [address], [place] [phone] * (ABNORMAL) Comprehensive metabolic panel (10/30/2024 1:09 PM EST) Sodium 132(L) 133 - 145 mmol/L LAB CHEMISTRY METHOD 10/30/2024 7:34 PM [facility] Potassium 3.8 3.5 - 5.5 mmol/L LAB CHEMISTRY METHOD 10/30/2024 7:34 PM [facility] Chloride 99 96 - 110 mmol/L LAB CHEMISTRY METHOD 10/30/2024 7:34 PM [facility] CO2 25 21 - 32 mmol/L LAB CHEMISTRY METHOD 10/30/2024 7:34 PM [facility] Anion Gap 8 3 - 11 LAB CHEMISTRY METHOD 10/30/2024 7:34 PM [facility] Glucose 86 70 - 100 mg/dL LAB CHEMISTRY METHOD 10/30/2024 7:34 PM [facility] BUN 11 5 - 25 mg/dL LAB CHEMISTRY METHOD 10/30/2024 7:34 PM [facility] Creatinine 0.80 0.50 - 1.10 mg/dL LAB CHEMISTRY METHOD 10/30/2024 7:34 PM [facility] eGFR 80 >=60 mL/min/1. 73m2 LAB CHEMISTRY METHOD 10/30/2024 7:34 PM [facility] Comment:Calculation based on the Chronic Kidney Disease Epidemiology Collaboration (CKD-EPI) equation refit without adjustment for race. BUN/Creatinine Ratio 13.8 LAB CHEMISTRY METHOD 10/30/2024 7:34 PM [facility] Calcium 9.6 8.5 - 10.5 mg/dL LAB CHEMISTRY METHOD 10/30/2024 7:34 PM [facility] AST (SGOT) 22 10 - 42 unit/L LAB CHEMISTRY METHOD 10/30/2024 7:34 PM [facility] ALT (SGPT) 23 10 - 60 unit/L LAB CHEMISTRY METHOD 10/30/2024 7:34 PM [facility] Alkaline Phosphatase 79 42 - 121 unit/L LAB CHEMISTRY METHOD 10/30/2024 7:34 PM EST [facility] Total Protein 7.5 6.0 - 8.0 g/dL LAB CHEMISTRY METHOD 10/30/2024 7:34 PM EST [facility] Albumin 3.9 3.2 - 5.0 g/dL LAB CHEMISTRY METHOD 10/30/2024 7:34 PM EST [facility] Total Bilirubin 0.3 0.0 - 1.4 mg/dL LAB CHEMISTRY METHOD 10/30/2024 7:34 PM EST [facility] Blood Venous blood specimen / Unknown Venipuncture / Unknown 10/30/2024 1:09 PM EST 10/30/2024 1:09 PM EST us Jenny Hamm NP LAB BLOOD ORDERABLES Final Re sult [facility] [address] [place] [address], from Last 3 Months or Most Recently Relevant to Health Maintenance Insurance [facility] [facility] * Guarantor: DILIP Account Type Relation to Patient Date of Phone Billing Address DILIP CHERRY [address]iy[address] [place] [address] [facility] Advance Directives Documents on File Type Date Recorded Patient Leaf Conditioner Helper Expl anation Advance Directives and Living Will 12/18/2024 12:31 PM MOLST 10/20/2024
--- OUTSIDE RECORDS SUMMARY | 2025-08-21 15:37 | XMS_ITS | Data Portability ---
Author Organization [place] Address [address] [place] [address] Care Team Providers Care Wood Gang Sawyer Name Role Phone HIM CCA OTHER Assessment Encounter Date Assessment Date Assessment LastModified by Organization Details LastModified Time 02/20/2025 02/20/2025 service called for BP and FINNEGAN found 69 matilde with hx migraine FINNEGAN rheumatoid arthritis HTN asthma c/o FINNEGAN, not with feature of migraine also anxiety regarding BP also recently arrived from [place] and requires refills inhaler, theophylline recently taken [...] 90 mcg/actuati on aerosol inhaler 2024 025 [id number], [address], [place], [phone], 21:38:16 theophyllin e ER 300 mg tablet,exte nded release,12 hr 2024 025 [id number], [address], [place], [phone], 21:43:17 ibuprofen 400 mg tablet 2024 025 [facility], [address], [place], [id number], 5 21:38:17 ibuprofen 200 mg tablet 2024 025 [email or web address] #85244, [address], [place], [id number], 5 21:38:05 Patient TargetsNo targets recorded. Patient [...] Details Last Updated DateTime 5 76 /min 99298.7 6 g 97.5 [degF] 16 /min 97 [...] ICD10 Code Diagnosis IMO Codes Diagnosis Note [id number] Polina Kaye MD [facility] ED [facility] [address] [place] [address] 02/20/2025 21:18:54 02/21/2025 21:17:20 Uncomplicated moderate persistent asthma [id number] J45.40 [id number] Tension-type headache 39 0249584 G44.209 37266 Health Concerns Section Related Observation LastModified by Organization Detai ls LastModified Time None Recorded Concern Status LastModified by Organization Details LastModified Time None Recorded Advance Directives Directive None Recorded Payers Insurance Date Sequence Insurance Name Policy Number Policy Beauchamp Covered Member ID Beauchamp Member ID Guarantor Name 02/21/2025 1 [facility] - DOS ON OR AFTER 2022 - DUAL ELIGIBLE - DETENTION OPTIONS AND ONE CARE (MEDICARE REPLACEMENT/ADV ANTAGE - HMO) Fouzia Hernandez [id number] Fouzia Hernandez Notes Date Note Type Note [...] .................... .................... .................... .................... .................... .................... . Senior Chemical Engineer Note From Liv Sandoval: [place] 6 responds [...] to make eye contact and smiles at [facility]. She is generally well-appearing. No facial droop [...] son just moved to the area from [place] a few months ago and have yet to be established w/ a PCP. They are on a waiting list. She also has asthma. She is denying cp, sob, n/v/d, fevers/chills, ams, confusion, difficulty speaking, or feeling like she can't move or have control of one-side of her body. She denies this finnegan being a migraine. Pt consents to evaluation and treatment today. [facility] obtains pt consent. Vital signs are gathered and pt is assessed. Physical exam is unremarkable and lung sounds are clear to auscultation bilaterally. [facility] contacts [facility] and discusses the above. [facility] asks about pt's medical hx and prescriptions and wants to ensure she has enough of her medications to last until she does get in to see a PCP. She asks for a refill on her albuterol inhaler as well as her theophylline. She is currently under the care of a mechanical maintenance engineer for her RA. [facility] orders ibuprofen 400mg PO for pt for the FINNEGAN. [facility] administers 200mg x2 tablets PO for pt and instructs her on how to alternate the ibuprofen w/ Tylenol for the FINNEGAN. [facility] informs pt and sone of warning signs of when to seek emergency care. Pt and son thank [facility] for coming. [facility] is clear. Report completed by DEVYN Sandoval [id number]. [facility] Medication Orders: ibuprofen 200 mg tablet: Administered .................... .................... .................... .................... .................... .................... .................... . [facility] Consulted: Polina Kaye .................... .................... .................... .................... .................... .................... .................... . Disposition: Fulfilled Polina Kaye MD [address] [place] [address],[address], [place], [address], [employer] [facility] [employer] 02/20/2025 22:42:27 OBGyn Episode No OBEpisode recorded.
[2025-08-21 15:39] VITALS: BP 185/77; PULSE 88; RESP 14; TEMP 36.4; O2SAT 98; BMI 30.7
--- NOTE | 2025-08-21 15:39 | MHC.PC.OV ---
Vital Signs 08/21/25 15:39 Height 5 ft Weight 157 lb 6 oz BMI 30.7 BP 185/77 H Blood Pressure Location Lt brachial Position Sitting Respiration 14 Pulse 88 Pulse Source Pulse Oximeter Temp 97.5 F Temp Source Oral Pulse Oximetry (%) 98 Oxygen Delivery Method Room Air Intake Visit Reasons: 2 wk - lab review Intake Note: New patient present to establish care and for medication review. Machine Hamper Maker Required: No Machine Hamper Maker Name: Doctor speaks romansh Accompanied by: Son Allergies No Known Allergies Allergy (Verified 08/21/25 15:40) Medication List - Last Reconciled 08/21/25 by Bereket Dent MD acetaminophen ER 650 mg PO Q12H PRN albuterol sulfate 90 mcg/actuation 2 puffs inhalation Q4H PRN budesonide-formoterol 80-4.5 mcg/actuation 2 puffs inhalation BID vjnevmusgv-dnqkdnbjeispp-cblt 50-325-40 mg 1 tab PO DAILY PRN cetirizine (All Day Allergy (cetirizine)) 10 mg PO DAILY PRN ergocalciferol (vitamin D2) 1,250 mcg PO QWEEK hydroxychloroquine 200 mg PO DAILY losartan 25 mg PO DAILY montelukast 10 mg PO BEDTIME [nebulizer As directed] pantoprazole 40 mg PO QAM prednisone 2.5 mg PO BID theophylline ER 300 mg PO QAM Tobacco use date assessed: 08/21/25 Fall risk assessment: No Falls in past year Last assessed Fall Risk: 08/21/25 Dental Screening Dental Screen Date: 08/21/25 Did you have a dental visit in the last 12 months?: No Did you have a dental problem in the last 6 months where you did not have access to dental care?: No Was dental information given to patient?: No HPI HPI Comments History of Present Illness Details History of Present Illness The patient is a 69 year old female presenting for follow-up on chronic conditions including asthma and hypertension, medication management, and review of lab results. Asthma: The patient has a history of asthma since she was 19 years old and reports experiencing many asthma attacks. She feels that her medication has helped her, but acknowledges frequent use of her albuterol inhaler, requiring refills. Her medication regimen has included montelukast, cetirizine, and a nebulizer. Hypertension: The patient's blood pressure was elevated to 185 in the clinic. She reports that her blood pressure readings are also high at home, though not as high as the in-office reading. She is currently taking losartan 25 mg for her blood pressure. Lab Abnormalities: Recent lab results showed low hemoglobin and hematocrit. Her vitamin D level was low at 26, below the normal range of 30-100. Conversely, her vitamin B12 was elevated at 1259, above the normal range of 200-900, and she confirms taking vitamin B12 supplements. Medications: - Montelukast - Cetirizine - Albuterol inhaler (pump) - Nebulizer medication - Losartan 25 mg - Vitamin B12 supplement - Rzewoblchq-rsrgvbsxodtyu-wzxgkktv Social History: - Diet: She reports eating iron-rich foods such as beans, kidney beans, lentils, broccoli, and spinach. Diagnostic Results: - Labs: Hemoglobin and hematocrit are low. - Labs: Vitamin D is low at 26 (normal 30-100). - Labs: Vitamin B12 is elevated at 1259 (normal 200-900). - Labs: Folate, thyroid function, liver function, kidney function, calcium and magnesium levels are normal. - Labs: Hemoglobin A1c is normal; the patient is not prediabetic or diabetic. - Labs: Hepatitis B, Hepatitis C, and HIV tests are negative. Past Medical History - Asthma since age 19. Health Maintenance - Discussed increasing dietary intake of iron. - Discussed vitamin D supplementation and cessation of vitamin B12 supplementation. - Infectious Disease Screening: Hepatitis B, C, and HIV tests were negative. - Vaccinations: Status of pneumonia vaccine was reviewed. [facility] Medical History (Updated 08/22/25 @ 19:16 by Bereket Dent MD) GERD (gastroesophageal reflux disease) Osteoarthritis Osteopenia Sleep disturbance Insomnia Moderate persistent asthma Overlapping toe Bunion Hernia Migraine Rheumatoid arthritis Arthritis Asthma Surgical History H/O eye surgery History of cholecystectomy History of intestinal surgery History of hip surgery Family History Sister Substance use disorder Brother Substance use disorder Mother Substance use disorder Social History Housing: Apartment Alcohol intake: never Patient Tobacco Use Status: Never used Tobacco e-Cigarette/Vaping Use: Never Used Cognitive needs: No Hearing needs: No Vision needs: Yes Questionnaire PHQ-9 Over the last 2 weeks, how often have you been bothered by any of the following problems? 1. Little interest or pleasure in doing things: not at all 2. Feeling down, depressed, or hopeless: not at all 3. Trouble falling or staying asleep, or sleeping too much: nearly every day 4. Feeling tired or having little energy: nearly every day 5. Poor appetite or overeating: nearly every day 6. Feeling bad about yourself - or that you are a failure or have let yourself or your family down: not at all 7. Trouble concentrating on things, such as reading the newspaper or watching television: not at all 8. Moving or speaking so slowly that other people could have noticed. Or the opposite - being so fidgety or restless that you have been moving around a lot more than usual: not at all 9. Thoughts that you would be better off or of hurting yourself in some way: not at all Total score: 9 Depression Screening Interpretation: Negative Depression Screening Done: Yes 97676 - PHQ-9 Billing: Yes Source: Developed by Drs. Tae Odell, Cara Vanegas, Fito Rosenberg and colleagues, with an educational elian from [employer]. Thrive Questionnaire Date Thrive assessed: 08/21/25 I am a: Patient What is your living situation today?: I have a place to live, but I am worried about losing it in the future Within the past 12 months, did the food you bought not last and you didn't have the money to get more?: Never true Within the past 12 months, did you worry whether your food would run out before you got money to buy more?: Sometimes True Do you have trouble paying for medicines?: No Do you have trouble getting transportation to medical appointments?: No Do you have trouble paying your heating and electricity bill?: No Do you have trouble taking care of your child, family member or friend?: I choose not to answer this question Do you have trouble with day-to-day activities such as bathing, preparing meals, shopping, managing finances, etc.?: Yes Are you currently unemployed and looking for a job?: No Are you interested in more education?: No Currently or been in a relationship where the following occur: No concerns reported THRIVE Score: 2 AUDIT C Alcohol Use Questionnaire (AUDIT-C) 1. How often do you have a drink containing alcohol?: Never Total Score: 0 PATY-7 AMB Questionnaire PATY-7 Date PATY - 7 assessed: 08/21/25 Feeling nervous, anxious, or on edge: 1 = Several days Not being able to stop or control worryin = Several days Worrying too much about different things: 1 = Several days Trouble relaxin = Nearly every day Being so restless that it is hard to sit still: 0 = Not at all Becoming easily annoyed or irritable: 0 = Not at all Feeling afraid as if something awful might happen: 1 = Several days Total PATY-7 score (0-4 normal; 5-9 mild; 10-14 moderate; 15-21 severe): 7 Source: Developed by Drs. Tae Odell, Cara Vanegas, Fito Rosenberg and colleagues, with an educational elian from [employer]. PATY-7 Assessment Billing PATY-7 Assessment Tool: PATY-7 Assessment 33263 Review of Systems Narrative Review of Systems - Respiratory: Reports a history of asthma since age 19 with many attacks, but feels her current medication is helping. - General: Reports feeling well. - Gastrointestinal: Denies reflux. 10-point ROS reviewed and negative except as noted in HPI Physical exam (Primary Care) Vital Signs: Last Vital Signs Temp 97.5 F 08/21/25 15:39 Pulse 88 08/21/25 15:39 Resp 14 08/21/25 15:39 BP 185/77 H 08/21/25 15:39 Pulse Ox 98 08/21/25 15:39 Oxygen Delivery Method Room Air 08/21/25 15:39 BMI result Body Mass Index 30.7 Tobacco/Smoking Status: Tobacco use Status Tobacco use date assessed 08/21/25 08/21/25 15:49 Patient Tobacco Use Status Never used Tobacco 08/21/25 15:49 e-Cigarette/Vaping Use Never Used 08/21/25 15:49 PHQ-9: PHQ-9 Score PHQ-9: Total score 9 08/21/25 16:06 Depression Screening Interpretation: Negative Thrive Assessment: Date of Thrive Assessment Date Thrive assessed 08/21/25 08/21/25 15:49 Currently or been in a relationship where the following occur: No concerns reported Narrative Physical Exam General: Well-appearing, in no acute distress. Vital signs: Blood pressure recorded at 185, patient reports elevated readings at home. HEENT: Normocephalic, atraumatic. PERRLA, EOMI. Conjunctiva clear, sclera anicteric. Oropharynx clear, mucous membranes moist. TMs intact bilaterally. Neck: Supple, no lymphadenopathy, no thyromegaly, no JVD or carotid bruits. Cardiovascular: RRR, normal S1/S2, no murmurs, rubs, or gallops. Peripheral pulses 2+ and symmetric. No edema. Respiratory: Lungs clear to auscultation bilaterally, no wheezes, rales, or rhonchi. Normal effort. Abdomen: Soft, non-tender, non-distended. Normoactive bowel sounds. No hepatosplenomegaly, no masses. MSK: Full range of motion, no joint swelling or deformity. Normal gait. Skin: Warm, dry, intact. No rashes, lesions, or pallor. Neuro: Alert and oriented x3. Cranial nerves II-XII intact. Strength 5/5 throughout. Sensation intact. Reflexes 2+ symmetric. Normal coordination and gait. Psych: Appropriate mood and affect. Normal judgment and insight. 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.8 Low hemoglobin D64.9 Migraine G43.909 Additional Codes PATY-7 Assessment Billing - PATY-7 Assessment Tool: PATY-7 Assessment 53525 ([id number]) PHQ-9 - 57087 - PHQ-9 Billing: Yes ([id number]) Assessment & Plan Assessment & Plan (1) Moderate persistent asthma: Code(s): J45.40 - Moderate persistent asthma, uncomplicated Category: Medical (2) Hypertension: Code(s): I10 - Essential (primary) hypertension Category: Medical (3) Low vitamin D level: Code(s): R79.89 - Other specified abnormal findings of blood chemistry Category: Medical (4) Hypervitaminosis: Code(s): E67.8 - Other specified hyperalimentation Category: Medical (5) Low hemoglobin: Code(s): D64.9 - Anemia, unspecified Category: Medical (6) Migraine: Code(s): G43.909 - Migraine, unspecified, not intractable, without status migrainosus Category: Medical Plan Consent Patient was informed and verbally consented to the use of an ambient scribe for clinic note documentation during this visit. Plan 1. Asthma - The patient's frequent use of albuterol indicates her asthma is not well-controlled. - Maintenance medications may need to be adjusted or added. - A one-time refill of albuterol will be provided to ensure the patient returns for follow-up. 2. Hypertension - Due to a high in-office blood pressure of 185, further evaluation is needed. - The current dose of losartan 25 mg appears to be ineffective. - The patient is instructed to monitor her blood pressure at home twice daily (morning and evening) for two weeks and record the readings. - A follow-up appointment is scheduled in two weeks to review the blood pressure log and determine if an increase in medication is necessary. 3. Iron Deficiency - Lab results indicate low hemoglobin and hematocrit, suggestive of poor dietary iron intake. - The patient is advised to increase her intake of iron-rich foods. 4. Vitamin D Deficiency - The patient's vitamin D level is low at 26. - A prescription for a once-weekly vitamin D supplement will be sent to the pharmacy. 5. Elevated Vitamin B12 Level - The patient's vitamin B12 level is elevated at 1259. - The patient is instructed to discontinue her vitamin B12 supplement. 6. Medication Refill - A prescription for cvhqnnkkam-ikmpkvwhnyswj-fugxrrgj will be sent to the pharmacy. Discussion Notes I reviewed the patient's asthma control, explaining that needing albuterol refills more than twice a year indicates that her condition is not well-controlled and that her maintenance medication regimen needs to be re-evaluated and likely adjusted. I provided a single refill for her albuterol to ensure she follows up for this re-evaluation. We discussed her high blood pressure reading of 185, and I explained that her current medication dose may be insufficient. I instructed her on how to properly monitor her blood pressure at home twice daily for two weeks and to return with this log to guide further management. I reviewed her lab results, noting the low hemoglobin/hematocrit, low vitamin D, and high vitamin B12. I advised her to increase dietary iron, instructed her to stop her vitamin B12 supplement, and informed her I would be prescribing a weekly vitamin D supplement. I also reassured her that her other lab results, including kidney, liver, thyroid function, and HbA1c, were all normal. Patient Instructions - Monitor your blood pressure at home twice a day, once in the morning and once at night, for the next two weeks. - When checking your blood pressure, sit quietly in a chair with back support, with your feet flat on the floor and your arm resting at heart level. - Bring your blood pressure log to your follow-up appointment in two weeks. - Increase the amount of iron-rich foods in your diet, such as beans, lentils, broccoli, and spinach. - Take the new vitamin D prescription once a week as directed. - Stop taking your vitamin B12 supplement. - stage set up worker your new prescriptions from the pharmacy. - Return for a follow-up appointment in 3 months, or sooner if your asthma symptoms are not controlled. Medical Decision Making The patient is a 69-year-old female here for a follow-up visit for her chronic conditions. Her asthma is suboptimally controlled, as evidenced by her frequent need for albuterol refills, which indicates that her maintenance therapy is insufficient. The plan is to reassess her regimen, as an adjustment to her maintenance medications is likely necessary. I provided a one-time albuterol refill to compel a timely follow-up visit for this reassessment. Her blood pressure was significantly elevated in the office at 185. While her current losartan 25 mg dose is likely inadequate, escalating therapy based on a single reading is premature. To rule out white-coat hypertension and gather more data, I have prescribed a two-week period of home blood pressure monitoring before making changes to her antihypertensive regimen. Review of recent labs revealed a few abnormalities. Low hemoglobin and hematocrit will be addressed with dietary counseling to increase iron intake. Her vitamin D deficiency (level of 26) warrants supplementation, and a prescription for weekly vitamin D will be provided. Her elevated vitamin B12 is iatrogenic, and she has been advised to discontinue her supplement. Other labs are reassuringly normal. Total Time Statement 20 min Total time spent caring for the patient today includes pre-visit chart review, documentation, review of laboratory and diagnostic imaging results, medication reconciliation, medically necessary evaluation, counseling on diagnoses, care coordination, ordering appropriate tests and medications, review of tests performed by other providers, reporting test results to the patient, and communication with other healthcare providers. Medications: New ergocalciferol (vitamin D2) 1,250 mcg PO QWEEK 12 caps 0RF ktvqlkkyji-wbuqsewqoqjcd-vlef 50-325-40 mg 1 tab PO DAILY PRN 90 tabs 0RF pain Refilled albuterol sulfate 90 mcg/actuation 2 puffs inhalation Q4H PRN 8.5 grams 1RF wheezing/dyspnea kadmthsfjp-twonfmtwzusgi-brsg 50-325-40 mg 1 tab PO DAILY PRN 30 tabs 0RF pain
== END 2025-08-21 16:07 | disposition home or self-care (01) ==
PROVIDERS: PCP Student in an Organized Health Care Education/Training Program; Visit Provider Student in an Organized Health Care Education/Training Program
DX: J45.40 Moderate persistent asthma, uncomplicated (principal); I10 Essential (primary) hypertension; R79.89 Other specified abnormal findings of blood chemistry; E67.8 Other specified hyperalimentation; D64.9 Anemia, unspecified; G43.909 Migraine, unspecified, not intractable, without status migrainosus

== ENCOUNTER → 2025-08-21 15:35 | Outpatient (BNVA) | payer OTHER, SELFPAY | PROVIDERS: Visit Provider Student in an Organized Health Care Education/Training Program | DX: J45.40 Moderate persistent asthma, uncomplicated (principal); I10 Essential (primary) hypertension; R79.89 Other specified abnormal findings of blood chemistry; E67.8 Other specified hyperalimentation; D64.9 Anemia, unspecified; G43.909 Migraine, unspecified, not intractable, without status migrainosus | CPT/HCPCS: 96127; 99212 ==